=== PATIENT | male | born 1955 | race Caucasian/White ===

== ENCOUNTER 2024-12-07 09:38 | Day surgery (SDC) | payer MEDICARE, OTHER ==
[2024-12-06 10:21] VITALS: BMI 26.4
[2024-12-07] MEDS ORDERED: CEFAZOLIN 2 GM VIAL ONE (09:52)
[2024-12-07] MEDS ORDERED: Bupivacaine/Epinephrine 0.25% 30 ML VIAL ONE (09:53)
[2024-12-07 10:06] LABS: #Basophils 0.03 10x3/uL (0.0-0.2); #Eosinophils 0.17 10x3/uL (0.0-0.5); #Monocytes 0.72 10x3/uL (0.0-1.1); #Neutrophils 3.56 10x3/uL (1.5-8.4); %Basophils 0.5 % (0.0-2.0); %Eosinophils 3.0 % (0.0-6.0); %Lymphocytes 18.9 % (18.0-47.0); %Monocytes 12.9 % (0.0-10.0); %Neutrophils 63.6 % (40.0-75.0); Hematocrit 48.8 % (38.8-50.0); Hemoglobin 16.0 g/dL (13.5-17.5); Mean Corpuscular Hemoglobin 30.0 pg (27.0-33.0); Mean Corpuscular Volume 91.4 fL (81.2-95.1); Platelet Count 246 10x3/uL (150-450); Red Blood Cell (RBC) Count 5.34 10x6/uL (4.32-5.72); White Blood Cell (WBC) Count 5.60 10x3/uL (3.5-10.5)
[2024-12-07] MEDS ORDERED: PROPOFOL 20 ML ONE (10:25)
[2024-12-07 10:26] LABS: Anion Gap 11 mmol/L (10-20); BUN (Urea Nitrogen) 18 mg/dL (8.4-25.7); Calc. Creatinine Clearance 74 mL/min (70-130); Calcium 9.7 mg/dL (7.8-10.44); Carbon Dioxide 27 mmol/L (23-31); Chloride 106 mmol/L (98-107); Glucose 111 mg/dL (80-115); Potassium 4.1 mmol/L (3.5-5.1); Sodium 140 mmol/L (136-145)
[2024-12-07] MEDS ORDERED: Rocuronium Bromide 10 MG/ML (10ML VIAL) ONE (10:26)
[2024-12-07] MEDS ORDERED: Lidocaine 1% PF 5 ML VIAL ONE (10:40)
[2024-12-07 11:15] LABS: ALT (SGPT) 37 U/L (Less than 45); AST (SGOT) 34 U/L (11-34); Albumin 4.5 g/dL (3.1-4.5); Alkaline Phosphatase 69 U/L (40-110); Bilirubin, Direct 0.2 mg/dL (0.1-0.3); Bilirubin, Total 0.4 mg/dL (0.3-1.2)
[2024-12-07] MEDS ORDERED: Acetaminophen 500 MG TAB ONE (11:27)
[2024-12-07] MEDS ORDERED: LevoFLOXacin D5W 500 mg (100 mL) BAG ONE (11:44)
[2024-12-07] MEDS ORDERED: Bupivacaine HCl 0.5%/Epinephrine 1:200,000/PF 30 ml Vial ONE (12:09)
[2024-12-07] MEDS ORDERED: SUGAMMADEX SODIUM 200 MG/2 ML VIAL ONE (12:22)
[2024-12-07] MEDS ORDERED: Ondansetron PF 4 MG/2 ML Vial ONE (12:22)
[2024-12-07] MEDS ORDERED: oxyCODONE 5 MG TAB ONE (13:45)
== END 2024-12-07 14:38 | disposition home or self-care (01) ==
LOC: CSHSDC 09:38
PROVIDERS: ATTEND Surgery
PROC: 0FT44ZZ Resection of Gallbladder, Percutaneous Endoscopic Approach (ICD-10-PCS; principal; 2024-12-07)
DX: K81.1 Chronic cholecystitis (principal); E78.00 Pure hypercholesterolemia, unspecified; I10 Essential (primary) hypertension; Z79.899 Other long term (current) drug therapy; Z88.0 Allergy status to penicillin
CPT/HCPCS: 47562; 80048; 80076; 85025; 93005; C1889; C9776; J1956; J2405; J2704; J3010; S2900; 36415; 88304; 93010